=== PATIENT | male | born 1940 | race Caucasian/White ===

== ENCOUNTER 2019-07-12 19:04 | Emergency (ER) | payer MEDICARE ==
[~2019-07-12] VITALS: Ht 172.7 cm; Wt 80.0 kg
[2019-07-12 19:35] VITALS: BP 131/82
--- NOTE | 2019-07-12 19:50 | NUR ---
ICE PACK APPLIED PT TO XR.
== END 2019-07-12 21:32 | disposition home or self-care (01) ==
LOC: ED 20:55
DX: S93.402A Sprain of unspecified ligament of left ankle, initial encounter (principal); I48.91 Unspecified atrial fibrillation; I10 Essential (primary) hypertension; W01.198A Fall on same level from slipping, tripping and stumbling with subsequent striking against other object, initial encounter; Y93.89 Activity, other specified; Y92.480 Sidewalk as the place of occurrence of the external cause; Y99.8 Other external cause status
CPT/HCPCS: 99283